=== PATIENT | female | born 1970 | race Caucasian/White ===

== ENCOUNTER → 2016-09-08 | Outpatient (CLI) | payer OTHER ==
[~2016-09-08] MED LIST: BENZ100C4 PO; DOCU-30 PO; HYDR1TAB14 PO; LEVO750T26 PO; OMEP-110 PO; OXYC-302 PO; OXYC5CAP4 PO; PREG25CA PO; RIVA20TA PO
== END | disposition home or self-care (01) ==
LOC: RAD 09:26
PROVIDERS: ATTEND Internal Medicine Hematology & Oncology
DX: R07.9 Chest pain, unspecified (principal); R06.09 Other forms of dyspnea; C18.7 Malignant neoplasm of sigmoid colon
CPT/HCPCS: 71020; 93005

== ENCOUNTER → 2016-10-30 | Outpatient (CLI) | payer OTHER ==
[~2016-10-30] MED LIST changes: +OMNIPAQUE 350 MG/ML, 100ML BOTTLE ONE
== END | disposition home or self-care (01) ==
LOC: CFH 11:47
PROVIDERS: ATTEND Internal Medicine Hematology & Oncology
DX: C78.7 Secondary malignant neoplasm of liver and intrahepatic bile duct (principal); C18.7 Malignant neoplasm of sigmoid colon; R91.8 Other nonspecific abnormal finding of lung field; K76.9 Liver disease, unspecified
CPT/HCPCS: 71260; 74177; Q9967

== ENCOUNTER → 2017-02-13 | Outpatient (CLI) | payer OTHER ==
[~2017-02-13] MED LIST changes: +BENZ100C17 PO; -BENZ100C4 PO; +DOCU-131 PO; -DOCU-30 PO; +OXYC5CAP2 PO; -OXYC5CAP4 PO
== END | disposition home or self-care (01) ==
LOC: CFH 07:48
PROVIDERS: ATTEND Internal Medicine Hematology & Oncology
DX: C78.7 Secondary malignant neoplasm of liver and intrahepatic bile duct (principal); C18.7 Malignant neoplasm of sigmoid colon
CPT/HCPCS: 71260; 74177; Q9967